=== PATIENT | male | born 1995 | race Asian ===

== ENCOUNTER 2016-02-14 17:07 | Emergency (ER) | payer OTHER ==
[~2016-02-14] VITALS: Ht 182.9 cm; Wt 100.0 kg
[~2016-02-14 17:07] MED LIST: PEPCID 20MG TAB20 MG PO; ZOFRAN ODT4 MG PO
[2016-02-14 17:09] VITALS: TEMP 97
[2016-02-14 17:59] LABS: BASO # 0.1 (0.0-0.2); BASO % 0.5 % (0.0-2.0); EOS # 0.1 (0.0-0.7); EOS % 1.1 % (0-4.0); GRAN # 8.7 (1.4-6.5); GRAN % 73.4 % (42.2-75.2); HEMATOCRIT 43.6 % (42.0-52.0); HEMOGLOBIN 15.8 g/dl (13.5-18.0); LYMPH # 2.2 (1.2-3.4); LYMPH % 18.3 % (20.0-51.0); MEAN CELL VOLUME 89 fl (80.0-100.0); MEAN CORPUSCULAR HEMOGLOBIN 32 pg (27.0-31.0); MEAN CORPUSCULAR HGB CONC 36 g/dl (33.0-37.0); MONO # 0.8 (0.1-0.6); MONO % 6.4 % (1.7-9.3); PLATELET COUNT 282 K/mm3 (130-400); RED BLOOD COUNT 4.92 M/mm3 (4.20-5.60); REDCELL DISTRIBUTION WIDTH-CV 11.4 % (11.5-14.5); WHITE BLOOD COUNT 11.8 K/mm3 (4.8-10.8)
[2016-02-14 18:19] LABS: ADJUSTED CALCIUM 9.1 mg/dL (8.4-10.2); ALBUMIN 4.6 gm/dL (3.5-5.0); BILIRUBIN,TOTAL 0.9 mg/dL (0.0-1.0); CALCIUM 9.6 mg/dL (8.4-10.2); CREATININE, serum 0.76 mg/dL (0.66-1.25)
[2016-02-14] MEDS ORDERED: ANTIVERT 25MG25 MG PO (20:43)
[2016-02-14 20:51] VITALS: BP 147/84; PULSE 71
== END 2016-02-14 20:51 | disposition home or self-care (01) ==
LOC: COL.ER 17:07
PROVIDERS: Nurse Practitioner
DX: R42 Dizziness and giddiness (principal)
CPT/HCPCS: J3360; J7030